=== PATIENT | male | born 1950 | race Caucasian/White ===

== ENCOUNTER 2019-02-19 08:42 | Emergency (ER) | payer MEDICARE, OTHER ==
[~2019-02-19] VITALS: Ht 172.7 cm; Wt 136.1 kg
[2019-02-19 08:53] VITALS: BP 126/78
== END 2019-02-19 11:06 | disposition home or self-care (01) ==
LOC: ER 08:42
DX: M79.672 Pain in left foot (principal); E66.01 Morbid (severe) obesity due to excess calories; I50.9 Heart failure, unspecified; M19.90 Unspecified osteoarthritis, unspecified site; Z68.42 Body mass index [BMI] 45.0-49.9, adult; Z88.0 Allergy status to penicillin
CPT/HCPCS: 73630